=== PATIENT | female | born 1990 | race Two or more races ===

== ENCOUNTER 2018-09-19 16:55 | Observation (INO) | payer MEDICAID ==
[~2018-09-19] VITALS: Ht 162.6 cm; Wt 67.1 kg
[2018-09-19] MEDS ORDERED: BETAMETHASONE ACET (6MG/ML) 5ML VIAL IM ONE (17:30)
[2018-09-19] MEDS ORDERED: TERBUTALINE SULFATE 1 MG/ML 1ML VIAL SC ONE (17:47)
[2018-09-19] MEDS ORDERED: TERBUTALINE SULFATE 1 MG/ML 1ML VIAL SC SCH (18:00)
[2018-09-19] MEDS ORDERED: NIFEdipine 10 MG CAP PO ONE (19:15)
[2018-09-19] MEDS ORDERED: NIFEdipine 10 MG CAP ONE (19:18)
== END 2018-09-19 20:03 | disposition home or self-care (01) | DRG 563 ==
LOC: LDRP 16:55
PROVIDERS: ADMIT Specialist; ATTEND Specialist
DX: O60.03 Preterm labor without delivery, third trimester (principal); O46.93 Antepartum hemorrhage, unspecified, third trimester; Z3A.32 32 weeks gestation of pregnancy
CPT/HCPCS: 59025; 81002; 96372; G0378; J0702; J3105

== ENCOUNTER 2018-09-20 18:21 | Observation (INO) | payer MEDICAID ==
[2018-09-20] MEDS ORDERED: BETAMETHASONE ACET (6MG/ML) 5ML VIAL IM SCH (22:00)
== END 2018-09-20 20:35 | disposition home or self-care (01) | DRG 566 ==
LOC: LDRP 19:15
PROVIDERS: ADMIT Specialist; ATTEND Specialist
DX: O26.893 Other specified pregnancy related conditions, third trimester (principal); Z3A.32 32 weeks gestation of pregnancy
CPT/HCPCS: 59025; 81002; 96372; G0378

== ENCOUNTER 2018-09-26 17:11 | Observation (INO) | payer MEDICAID ==
[2018-09-26] MEDS ORDERED: NIF10C PO (20:08)
[2018-09-26] MEDS ORDERED: PREN-96 PO (22:32)
[2018-10-10 21:07] LABS: Urine Bacteria NONE SEEN /hpf (None Seen); Urine Blood 1+ /uL (Negative); Urine Specific Gravity 1.004 (1.001-1.035); Urine WBC 5 /hpf (0 - 5)
== END 2018-10-10 21:24 | disposition home or self-care (01) | DRG 563 ==
LOC: LDRP 10-10 19:18
PROVIDERS: ADMIT Obstetrics & Gynecology; ATTEND Obstetrics & Gynecology
DX: O60.03 Preterm labor without delivery, third trimester (principal); O62.9 Abnormality of forces of labor, unspecified; Z3A.35 35 weeks gestation of pregnancy
CPT/HCPCS: 59025; 76818; 81001; 81002; G0378

== ENCOUNTER 2018-09-26 18:56 | Observation (INO) | payer MEDICAID, OTHER ==
[~2018-09-26] VITALS: Ht 160 cm; Wt 68.0 kg
[2018-09-26] MEDS ORDERED: NIF10C PO (20:08)
[2018-09-26] MEDS ORDERED: NIFEdipine 10 MG CAP PO ONE (20:15)
[2018-09-26 20:57] LABS: Urine Bacteria FEW /hpf (None Seen); Urine Blood Negative /uL (Negative); Urine Mucus FEW (None Seen); Urine Specific Gravity 1.005 (1.001-1.035); Urine WBC 17 /hpf (0 - 5)
[2018-09-26] MEDS ORDERED: TERBUTALINE SULFATE 1 MG/ML 1ML VIAL SC ONE ×2 (21:13→21:15)
[2018-09-26] MEDS ORDERED: PREN-96 PO (22:32)
== END 2018-09-26 22:20 | disposition home or self-care (01) | DRG 563 ==
LOC: LDRP 18:56 → EDUNIT# 18:56
PROVIDERS: ADMIT Obstetrics & Gynecology; ATTEND Obstetrics & Gynecology
DX: O60.03 Preterm labor without delivery, third trimester (principal); O26.893 Other specified pregnancy related conditions, third trimester; R10.2 Pelvic and perineal pain; Z3A.33 33 weeks gestation of pregnancy
CPT/HCPCS: 59025; 76818; 81001; 81002; 96372; G0378; J3105

== ENCOUNTER 2018-10-03 19:30 | Observation (INO) | payer MEDICAID ==
[~2018-10-03 19:30] MED LIST: NIF10C PO; PREN-96 PO
== END 2018-10-03 21:00 | disposition home or self-care (01) | DRG 566 ==
LOC: LDRP 19:30
PROVIDERS: ADMIT Specialist; ATTEND Specialist
DX: O26.873 Cervical shortening, third trimester (principal); O62.9 Abnormality of forces of labor, unspecified; Z3A.34 34 weeks gestation of pregnancy
CPT/HCPCS: 59025; 76818; 81002; G0378

== ENCOUNTER 2018-10-17 18:26 | Observation (INO) | payer MEDICAID | END 2018-10-17 20:22 | disposition home or self-care (01) | DRG 566 | LOC: LDRP 19:15 | PROVIDERS: ADMIT Obstetrics & Gynecology; ATTEND Obstetrics & Gynecology | DX: O00.01 Abdominal pregnancy with intrauterine pregnancy (principal); Z3A.36 36 weeks gestation of pregnancy | CPT/HCPCS: 59025; 76818; 81002; G0378 ==

== ENCOUNTER 2018-10-26 14:15 | Observation (INO) | payer MEDICAID | END 2018-10-26 15:25 | disposition home or self-care (01) | DRG 566 | LOC: LDRP 14:15 | PROVIDERS: ADMIT Obstetrics & Gynecology; ATTEND Obstetrics & Gynecology | DX: O26.893 Other specified pregnancy related conditions, third trimester (principal); R10.9 Unspecified abdominal pain; Z3A.37 37 weeks gestation of pregnancy | CPT/HCPCS: 59025; 81002; G0378 ==

== ENCOUNTER 2022-03-19 21:23 | Emergency (ER) | payer MEDICAID ==
[~2022-03-19] VITALS: Ht 162.6 cm; Wt 65.0 kg
[~2022-03-19 21:23] MED LIST changes: -NIF10C PO
[2022-03-20 01:46] LABS: Urine Bacteria FEW /hpf (None Seen); Urine Blood Negative /uL (Negative); Urine Mucus FEW (None Seen); Urine Specific Gravity 1.009 (1.001-1.035); Urine WBC 22 /hpf (0 - 5)
[2022-03-20 03:15] VITALS: BP 110/67
[2022-03-20 04:04] LABS: Basophils # (auto) 0 10 ^3/uL (0-0.2); Basophils % (auto) 0.4 % (0.0-2.0); Eosinophils # (auto) 0 10 ^3/uL (0-0.8); Eosinophils % (auto) 0.2 % (0.0-7.0); Hematocrit 38.5 % (36.0-46.0); Hemoglobin 12.8 g/dL (12.2-16.2); Lymphocytes # (auto) 1.6 10 ^3/uL (0.4-5.4); Lymphocytes % (auto) 18.8 % (10.0-50.0); Mean Corpuscular Hemoglobin 28.6 pg (28.0-32.0); Mean Corpuscular Hgb Conc. 33.2 g/dL (32.0-36.0); Mean Corpuscular Volume 86.1 fL (80.0-100.0); Monocytes # (auto) 0.4 10 ^3/uL (0-1.3); Monocytes % (auto) 4.1 % (0.0-12.0); Neutrophils # (auto) 6.7 10 ^3/uL (1.6-8.6); Neutrophils % (auto) 76.5 % (37.0-80.0); Nucleated Red Blood Cells % 0.1 %; Red Blood Cells 4.47 10^6/uL (4.0-5.20); Red Cell Distribution Width 14.2 % (11.8-14.3); White Blood Cell 8.7 10^3/uL (4.4-10.8)
[2022-03-20 04:13] LABS: Albumin 3.8 g/dL (3.4-5.0); Calcium 8.8 mg/dL (8.5-10.1); Potassium 3.6 mmol/L (3.5-5.1)
[2022-03-20 04:15] LABS: Bilirubin, Total 0.5 mg/dL (0.2-1.0); Total Protein 7.3 g/dL (6.4-8.2)
[2022-03-20] MEDS ORDERED: NITR-87 PO (06:24)
== END 2022-03-20 07:32 | disposition home or self-care (01) ==
LOC: EDBD 21:23 → ER 21:23
DX: O26.891 Other specified pregnancy related conditions, first trimester (principal); R10.30 Lower abdominal pain, unspecified; Z3A.01 Less than 8 weeks gestation of pregnancy; V43.52XA Car driver injured in collision with other type car in traffic accident, initial encounter; Y93.89 Activity, other specified; Y92.488 Other paved roadways as the place of occurrence of the external cause; Y99.8 Other external cause status
CPT/HCPCS: 36415; 76705; 76801; 80053; 81001; 84702; 85025; 86850; 86900; 86901

== ENCOUNTER 2022-08-15 06:47 | Emergency (ER) | payer MEDICAID ==
[~2022-08-15] VITALS: Ht 162.6 cm; Wt 61.0 kg
[2022-08-15 06:47] VITALS: BP 127/66
[~2022-08-15 06:47] MED LIST changes: +NITR-87 PO
[2022-08-15 07:29] LABS: Hematocrit 35.5 % (36.0-46.0); Hemoglobin 11.9 g/dL (12.2-16.2); Mean Corpuscular Hemoglobin 29.2 pg (28.0-32.0); Mean Corpuscular Hgb Conc. 33.5 g/dL (32.0-36.0); Mean Corpuscular Volume 87.2 fL (80.0-100.0); Red Blood Cells 4.07 10^6/uL (4.0-5.20); Red Cell Distribution Width 13.8 % (11.8-14.3); White Blood Cell 8.3 10^3/uL (4.4-10.8)
[2022-08-15 07:32] LABS: Basophils % (manual) 0 (0.0-2.0); Blast Cells 0; Eosinophils % (manual) 0 (0-7); Metamyelocytes % 0; Myelocytes % 0; Promyelocytes % 0; Reactive Lymphocytes 0
[2022-08-15 07:47] LABS: Calcium 7.9 mg/dL (8.5-10.1); Potassium 3.4 mmol/L (3.5-5.1)
[2022-08-15 07:51] LABS: Bilirubin, Total 0.7 mg/dL (0.2-1.0); Total Protein 6.4 g/dL (6.4-8.2)
[2022-08-15 07:55] LABS: Urine Bacteria NONE SEEN /hpf (None Seen); Urine Blood Negative /uL (Negative); Urine Mucus FEW (None Seen); Urine Specific Gravity 1.033 (1.001-1.035); Urine WBC 5 /hpf (0 - 5)
[2022-08-15] MEDS ORDERED: METOCLOPRAMIDE HCL 5MG/ml INJ 2ml VIAL IV ONE (08:15)
[2022-08-15] MEDS ORDERED: D5W/SOD CHLO 0.9% 1,000 ML IV ONE (08:15)
[2022-08-15] MEDS ORDERED: PYRIDOXINE HCL 50 MG TAB PO SCH (08:15)
[2022-08-15 08:30] LABS: Band Neutrophils % (manual) 8; Lymphocytes % (manual) 3 (10.0-50.0); Monocytes % (manual) 1 (0-12)
[2022-08-15] MEDS ORDERED: FAMOTIDINE 20 MG TAB PO ONE (11:30)
[2022-08-15] MEDS ORDERED: MAALOX PLUS or MAALOX 30 ML PO ONE (11:30)
[2022-08-15] MEDS ORDERED: CEFP200T15 PO (12:09)
== END 2022-08-15 13:48 | disposition home or self-care (01) ==
LOC: ER 06:47
DX: O23.42 Unspecified infection of urinary tract in pregnancy, second trimester (principal); N39.0 Urinary tract infection, site not specified; O21.8 Other vomiting complicating pregnancy; Z3A.27 27 weeks gestation of pregnancy
CPT/HCPCS: 36415; 80053; 81001; 83690; 84702; 85007; 85027; 96361; 96374; 99283; J2765; J7030

== ENCOUNTER 2022-11-01 17:12 | Inpatient (IN) | payer MEDICAID ==
[~2022-11-01] VITALS: Ht 162.6 cm; Wt 67.1 kg
[~2022-11-01 17:12] MED LIST changes: +CEFP200T15 PO; +PHENYLEPHRINE HCL 10 MG/ML VL IV ONE
[2022-11-01 18:45] LABS: Basophils # (auto) 0 10 ^3/uL (0-0.2); Eosinophils # (auto) 0 10 ^3/uL (0-0.8); Mean Corpuscular Hgb Conc. 32.9 g/dL (32.0-36.0); Monocytes # (auto) 0.3 10 ^3/uL (0-1.3); Monocytes % (auto) 3.4 % (0.0-12.0)
[2022-11-01 18:48] LABS: Basophils % (auto) 0.2 % (0.0-2.0); Eosinophils % (auto) 0.2 % (0.0-7.0); Hematocrit 35.6 % (36.0-46.0); Hemoglobin 11.7 g/dL (12.2-16.2); Lymphocytes # (auto) 1.5 10 ^3/uL (0.4-5.4); Mean Corpuscular Hemoglobin 25.5 pg (28.0-32.0); Mean Corpuscular Volume 77.4 fL (80.0-100.0); Neutrophils # (auto) 6.3 10 ^3/uL (1.6-8.6); Neutrophils % (auto) 77.2 % (37.0-80.0); Nucleated Red Blood Cells % 0.5 %; Red Cell Distribution Width 16.7 % (11.8-14.3); White Blood Cell 8.2 10^3/uL (4.4-10.8)
[2022-11-01 18:49] LABS: Albumin 2.8 g/dL (3.4-5.0); Calcium 8.7 mg/dL (8.5-10.1); Potassium 3.2 mmol/L (3.5-5.1)
[2022-11-01 18:52] LABS: BUN/Creatinine Ratio 13.1 (10.0-20.0); Bilirubin, Total 0.4 mg/dL (0.2-1.0); Total Protein 7.7 g/dL (6.4-8.2)
[2022-11-01 18:57] LABS: INR 0.87 (0.9-1.15); Partial Thromboplastin Time 28.1 sec (24.6-33.4)
[2022-11-01] MEDS ORDERED: LACTATED RINGER'S 1,000 ML IV ONE (19:00)
[2022-11-01] MEDS ORDERED: ceFAZolin 1GM/50ML 50 ML IV ONE (19:00)
[2022-11-01 19:14] LABS: Urine Bacteria FEW /hpf (None Seen); Urine Blood Negative /uL (Negative); Urine Specific Gravity 1.011 (1.001-1.035); Urine WBC 12 /hpf (0 - 5)
[2022-11-01] MEDS ORDERED: ONDANSETRON HCL 4 MG/2 ML VIAL ONE (19:15)
[2022-11-01] MEDS ORDERED: DexAMETHasone SOD PHOS 10MG/1ML VIAL INJ ONE (19:15)
[2022-11-01] MEDS ORDERED: oxyTOCIN 10 UNIT/ML 10ML VIAL ONE (19:15)
[2022-11-01] MEDS ORDERED: fentaNYL CITRATE 100 MCG/2 ML VL ONE (19:16)
[2022-11-01] MEDS ORDERED: MORPHINE SULF PF 5 MG/10 ML VIAL ONE (19:16)
[2022-11-01 19:21] LABS: Amphetamine Screen, Urine NEGATIVE (NEGATIVE); Barbiturate Scree,Urine NEGATIVE (NEGATIVE); Benzodiazephine Screen, Urine NEGATIVE (NEGATIVE); Cannabinoid Screen, Urine NEGATIVE (NEGATIVE); Cocaine Screen, Urine NEGATIVE (NEGATIVE); Opiate Scree,Urine NEGATIVE (NEGATIVE); Phencyclidine Screen, Urine NEGATIVE (NEGATIVE)
[2022-11-01] MEDS ORDERED: SODIUM CHLORIDE LOCK 10 ML ONE (19:47)
[2022-11-01] MEDS ORDERED: HYDR-4902 PO (19:48)
[2022-11-01] MEDS ORDERED: DOCU-94 PO (19:48)
[2022-11-01] MEDS ORDERED: ceFAZolin 1GM/50ML 50 ML IV SCH (20:00)
[2022-11-01] MEDS ORDERED: LACT. RINGERS/OXYTOCIN 20UNITS 1,000 ML IV ONE (20:00)
[2022-11-01] MEDS ORDERED: ONDANSETRON HCL 4 MG/2 ML VIAL IV PRN (20:00)
[2022-11-01] MEDS ORDERED: GUM (CHEWING) 1 GUM CHEW CHEW ONE (20:00)
[2022-11-01] MEDS ORDERED: MORPHINE SULFATE 4 MG/ML SYR/VIAL IV PRN (20:00)
[2022-11-01 21:25] VITALS: BP 131/62
[2022-11-01 22:00] VITALS: BP 110/69
[2022-11-01] MEDS ORDERED: LACTATED RINGER'S 1,000 ML IV SCH (22:30)
[2022-11-01] MEDS: ACETAMINOPHEN IV 1000 MG/100ML (10MG/ML) IV SCH (22:55)
[2022-11-01 22:58] LABS: Basophils # (auto) 0 10 ^3/uL (0-0.2); Basophils % (auto) 0.2 % (0.0-2.0); Eosinophils # (auto) 0 10 ^3/uL (0-0.8); Eosinophils % (auto) 0.1 % (0.0-7.0); Hematocrit 34.1 % (36.0-46.0); Hemoglobin 10.9 g/dL (12.2-16.2); Lymphocytes # (auto) 0.8 10 ^3/uL (0.4-5.4); Lymphocytes % (auto) 5.3 % (10.0-50.0); Mean Corpuscular Hemoglobin 24.6 pg (28.0-32.0); Mean Corpuscular Volume 76.8 fL (80.0-100.0); Monocytes # (auto) 0.3 10 ^3/uL (0-1.3); Monocytes % (auto) 1.9 % (0.0-12.0); Neutrophils # (auto) 13.3 10 ^3/uL (1.6-8.6); Neutrophils % (auto) 92.5 % (37.0-80.0); Red Blood Cells 4.44 10^6/uL (4.0-5.20); Red Cell Distribution Width 17.2 % (11.8-14.3); White Blood Cell 14.4 10^3/uL (4.4-10.8)
[2022-11-01 23:00] VITALS: BP 117/64
[2022-11-02] VITALS (26 sets, daily range): BP systolic 96–124; BP diastolic 53–77
[2022-11-02] MEDS: ceFAZolin 1GM/50ML 50 ML IV SCH ×3 (02:53→18:39)
[2022-11-02 06:22] LABS: Hemoglobin 9.8 g/dL (12.2-16.2)
[2022-11-02 06:24] LABS: Basophils # (auto) 0 10 ^3/uL (0-0.2); Basophils % (auto) 0.1 % (0.0-2.0); Eosinophils # (auto) 0 10 ^3/uL (0-0.8); Hematocrit 30.3 % (36.0-46.0); Lymphocytes # (auto) 1.1 10 ^3/uL (0.4-5.4); Lymphocytes % (auto) 7.6 % (10.0-50.0); Mean Corpuscular Hgb Conc. 32.5 g/dL (32.0-36.0); Mean Corpuscular Volume 77.1 fL (80.0-100.0); Monocytes # (auto) 0.6 10 ^3/uL (0-1.3); Monocytes % (auto) 4.2 % (0.0-12.0); Neutrophils # (auto) 12.8 10 ^3/uL (1.6-8.6); Neutrophils % (auto) 88.1 % (37.0-80.0); Red Blood Cells 3.93 10^6/uL (4.0-5.20); Red Cell Distribution Width 16.6 % (11.8-14.3); White Blood Cell 14.6 10^3/uL (4.4-10.8)
[2022-11-02] MEDS: ACETAMINOPHEN IV 1000 MG/100ML (10MG/ML) IV SCH (07:10)
[2022-11-02] MEDS ORDERED: BISACODYL 10 MG RECT SUPP PR PRN (07:30)
[2022-11-02] MEDS ORDERED: KETOROLAC TROMETH 30 MG/ML 1ML VIAL IV PRN (07:30)
[2022-11-02] MEDS: DOCUSATE SOD 100 MG CAP PO SCH ×2 (11:27→22:03)
[2022-11-02] MEDS: FERROUS SULFATE 325mg EC TAB PO SCH ×2 (11:27→22:03)
[2022-11-02] MEDS: DOCUSATE CALCIUM 240 MG CAP PO SCH (11:27)
[2022-11-02] MEDS: SIMETHICONE 80 MG CHEWABLE TABLET PO SCH ×3 (11:27→22:06)
[2022-11-02] MEDS: IBUPROFEN 800 MG TAB PO PRN ×2 (14:16→22:03)
[2022-11-02] MEDS: HYDROcodone-ACET 5/325MG TAB PO PRN (16:56)
[2022-11-02 22:02] LABS: Urine Bacteria NONE SEEN /hpf (None Seen); Urine Blood Negative /uL (Negative); Urine Specific Gravity 1.005 (1.001-1.035); Urine WBC 2 /hpf (0 - 5)
[2022-11-03] VITALS (7 sets, daily range): BP systolic 94–117; BP diastolic 55–72
[2022-11-03] MEDS ORDERED: ASCO500T11 PO (00:13)
[2022-11-03] MEDS ORDERED: DOCU240C23 PO (00:13)
[2022-11-03] MEDS ORDERED: PREN-96 PO (00:13)
[2022-11-03] MEDS ORDERED: IBUP800T26 PO (00:13)
[2022-11-03] MEDS ORDERED: FERRCAP9 PO (00:13)
[2022-11-03] MEDS: HYDROcodone-ACET 5/325MG TAB PO PRN ×4 (02:09→18:26)
[2022-11-03] MEDS: IBUPROFEN 800 MG TAB PO PRN ×3 (05:54→23:42)
[2022-11-03] MEDS: SIMETHICONE 80 MG CHEWABLE TABLET PO SCH ×4 (05:54→22:05)
[2022-11-03 08:07] LABS: RPR Non Reactive (Non Reactive)
[2022-11-03] MEDS: DOCUSATE SOD 100 MG CAP PO SCH ×2 (08:29→22:07)
[2022-11-03] MEDS: FERROUS SULFATE 325mg EC TAB PO SCH ×2 (08:29→22:04)
[2022-11-03] MEDS: DOCUSATE CALCIUM 240 MG CAP PO SCH (08:29)
[2022-11-03] MEDS ORDERED: WITCH HAZEL-GLYCERIN PAD TOP ONE (10:15)
[2022-11-03] MEDS ORDERED: DERMOPLAST 60ML BOTTLE TOP ONE (10:30)
[2022-11-04 02:50] VITALS: BP 105/61
[2022-11-04] MEDS: SIMETHICONE 80 MG CHEWABLE TABLET PO SCH (05:58)
[2022-11-04 07:00] VITALS: BP 132/79
[2022-11-04] MEDS: HYDROcodone-ACET 5/325MG TAB PO PRN (09:27)
[2022-11-04 11:00] VITALS: BP 129/82
== END 2022-11-04 13:42 | disposition home or self-care (01) | DRG 540 ==
LOC: LDRP 17:12 → OBSVTOIN 18:53 → LDRP 20:47
PROVIDERS: ADMIT Obstetrics & Gynecology; ATTEND Obstetrics & Gynecology
PROC: 10D00Z1 Extraction of Products of Conception, Low, Open Approach (ICD-10-PCS; principal; 2022-11-01 19:55)
DX: O34.211 Maternal care for low transverse scar from previous cesarean delivery (principal); O60.23X0 Term delivery with preterm labor, third trimester, not applicable or unspecified; R71.0 Precipitous drop in hematocrit; R33.9 Retention of urine, unspecified; Z37.0 Single live birth; Z3A.38 38 weeks gestation of pregnancy; O75.89 Other specified complications of labor and delivery
CPT/HCPCS: 36415; 59025; 80053; 80307; 81001; 81002; 85025; 85610; 85730; 86592; 86850; 86900; 86901; 94760; 94762; 96360; 96361; 96365; 96366; 96374; G0378; J0131; J0690; J1100; J1885; J2405; J2590

== ENCOUNTER 2024-01-21 21:23 | Emergency (ER) | payer MEDICAID ==
[~2024-01-21] VITALS: Ht 162.6 cm; Wt 63.5 kg
[~2024-01-21 21:23] MED LIST changes: +ASCO500T11 PO; -CEFP200T15 PO; +DOCU-94 PO; +DOCU240C23 PO; +FERRCAP9 PO; +HYDR-4902 PO; +IBUP-1455 PO; -NITR-87 PO; -PHENYLEPHRINE HCL 10 MG/ML VL IV ONE
[2024-01-21 22:28] LABS: Basophils # (auto) 0.1 10 ^3/uL (0-0.2); Basophils % (auto) 0.3 % (0.0-2.0); Eosinophils # (auto) 0 10 ^3/uL (0-0.8); Eosinophils % (auto) 0.1 % (0.0-7.0); Hemoglobin 14.2 g/dL (12.2-16.2); Lymphocytes # (auto) 0.4 10 ^3/uL (0.4-5.4); Lymphocytes % (auto) 2.2 % (10.0-50.0); Mean Corpuscular Hgb Conc. 33.1 g/dL (32.0-36.0); Mean Corpuscular Volume 87.7 fL (80.0-100.0); Monocytes # (auto) 0.3 10 ^3/uL (0-1.3); Monocytes % (auto) 1.5 % (0.0-12.0); Neutrophils # (auto) 16.7 10 ^3/uL (1.6-8.6); Neutrophils % (auto) 95.9 % (37.0-80.0); Red Cell Distribution Width 13.7 % (11.8-14.3); White Blood Cell 17.4 10^3/uL (4.4-10.8)
[2024-01-21 22:42] LABS: Albumin 4.7 g/dL (3.2-4.8); Alkaline Phosphatase 46 U/L (46-116); Anion Gap 9 (5-15); Aspartate Aminotransferase 10 U/L (13-40); BUN/Creatinine Ratio 13.8 (10.0-20.0); Bilirubin, Total 0.7 mg/dL (0.2-1.0); Blood Urea Nitrogen 8 mg/dL (9-23); Calcium 9.3 mg/dL (8.7-10.4); Carbon Dioxide 24 mmol/L (20-30); Chloride 106 mmol/L (98-107); Glucose 143 mg/dL (74-106); Lipase 33 U/L (12-53); Magnesium 1.7 mg/dL (1.6-2.6); Phosphorus 1.8 mg/dL (2.4-5.1); Potassium 3.1 mmol/L (3.5-5.1); Sodium 139 mmol/L (136-145); Total Protein 7.7 g/dL (5.7-8.2)
[2024-01-21 22:47] LABS: Alanine Aminotransferase 9 U/L (7-40)
[2024-01-21 23:25] VITALS: BP 124/77; PULSE 106; RESP 16; O2SAT 99
[2024-01-21] MEDS: ONDANSETRON HCL 4 MG/2 ML VIAL IV ONE (23:28)
[2024-01-21] MEDS: SODIUM CHLORIDE 0.9% 1,000 ML IV ONE (23:28)
[2024-01-22] MEDS: POTASSIUM PHOSPHATE 44 MEQ in D5W 5% 250 ML IV ONE (00:29)
[2024-01-22] MEDS: KETOROLAC TROMETH 30 MG/ML 1ML VIAL IV ONE (00:32)
[2024-01-22] MEDS: POTASSIUM CHL 20MEQ/100ML 100 ML IV ONE (00:41)
[2024-01-22] MEDS: SODIUM CHLORIDE 0.9% 1,000 ML IV ONE (00:41)
[2024-01-22] MEDS: POTASSIUM CHL 20 Meq TABLET PO ONE (00:45)
[2024-01-22] MEDS: PANTOPRAZOLE 40 MG/10 ML VIAL INJ IV ONE (01:21)
== END 2024-01-22 01:44 | disposition home or self-care (01) ==
LOC: ER 21:23
DX: K52.9 Noninfective gastroenteritis and colitis, unspecified (principal); E87.6 Hypokalemia; E83.39 Other disorders of phosphorus metabolism; E86.0 Dehydration; Z98.890 Other specified postprocedural states; Z79.899 Other long term (current) drug therapy
CPT/HCPCS: 36415; 80053; 83690; 83735; 84100; 85025; 93005; 96361; 96374; 96375; 99284; J1885; J2405; J7030; J7060